=== PATIENT | male | born 1975 | race Caucasian/White ===

== ENCOUNTER 2019-03-22 09:35 | Emergency (ER) | payer MEDICAID ==
[~2019-03-22] VITALS: Ht 152.4 cm; Wt 75.3 kg
[~2019-03-22 09:35] MED LIST: ALBU8HFA PO; BUDE10.22 INH; KETO10TA2 PO; POLY17PO36 PO
[2019-03-22 09:43] VITALS: BP 127/84
[2019-03-22] MEDS ORDERED: METH4TAB81 PO (10:31)
[2019-03-22] MEDS ORDERED: AMOX-422 PO (10:31)
== END 2019-03-22 10:43 | disposition home or self-care (01) ==
LOC: ER 09:36
DX: S90.31XA Contusion of right foot, initial encounter (principal); J32.9 Chronic sinusitis, unspecified; J45.909 Unspecified asthma, uncomplicated; Z79.2 Long term (current) use of antibiotics; Z79.899 Other long term (current) drug therapy; Z87.442 Personal history of urinary calculi; Z90.49 Acquired absence of other specified parts of digestive tract; Z98.890 Other specified postprocedural states; X58.XXXA Exposure to other specified factors, initial encounter; Y93.71 Activity, boxing; Y92.89 Other specified places as the place of occurrence of the external cause; Y99.8 Other external cause status
CPT/HCPCS: 73630; 99283

== ENCOUNTER 2019-08-08 05:32 | Emergency (ER) | payer MEDICAID, OTHER ==
[~2019-08-08] VITALS: Ht 152.4 cm; Wt 76.3 kg
[~2019-08-08 05:32] MED LIST changes: +METH4TAB81 PO
[2019-08-08 06:37] LABS: CLARITY,URINE CLOUDY (Clear); COLOR,URINE YELLOW (Yellow); GLUCOSE, URINE NEGATIVE (Neg); KETONES,URINE NEGATIVE (Neg); LEUKOCYTE ESTERASE ,URINE SMALL (Neg); NITRITES, URINE NEGATIVE (Neg); OCCULT BLOOD,URINE LARGE (Neg); PROTEIN,URINE TRACE mg/dl (Neg); UROBILINOGEN,URINE 0.2 E.U/dL (0.2-1.0)
[2019-08-08 06:41] LABS: UA COLLECTION TYPE CLN CATCH MIDSTREAM
[2019-08-08 06:45] LABS: BACTERIA,URINE 3+ /HPF (Neg); MUCUS STRANDS NONE SEEN /LPF (Neg); RBC,URINE TNTC /HPF (0-2); SQUAMOUS EPITHELIAL CELL,UR NONE SEEN /LPF (FEW); TRANSITIONAL EPI CELLS,URINE FEW /HPF
[2019-08-08] MEDS ORDERED: BUPIVAcaine/PF 7.5mg/ml (0.75%) 10ml vial IJ ONE (06:55)
[2019-08-08] MEDS ORDERED: CEPH-572 PO (08:03)
[2019-08-08] MEDS ORDERED: cephalexin 500mg capsule PO ONE (08:05)
[2019-08-08] MEDS ORDERED: LIDOcaine 5% patch TP SCH (08:05)
[2019-08-08 08:12] VITALS: BP 156/105
== END 2019-08-08 08:15 | disposition home or self-care (01) ==
LOC: ER 05:34
DX: M54.10 Radiculopathy, site unspecified (principal); M79.604 Pain in right leg; N39.0 Urinary tract infection, site not specified; J45.909 Unspecified asthma, uncomplicated; G89.29 Other chronic pain; Z87.442 Personal history of urinary calculi; Z98.890 Other specified postprocedural states; Z79.899 Other long term (current) drug therapy
CPT/HCPCS: 64450; 81001; 87077; 87088; 87186; 99284; J3490

== ENCOUNTER 2019-08-12 22:42 | Emergency (ER) | payer MEDICAID, OTHER ==
[~2019-08-12] VITALS: Ht 152.4 cm; Wt 72.3 kg
[~2019-08-12 22:42] MED LIST changes: +CEPH-572 PO
[2019-08-12 22:46] VITALS: BP 150/95
[2019-08-12] MEDS ORDERED: CefTRIAXone 250MG inj IM ONE (23:10)
[2019-08-12] MEDS ORDERED: HYDROcodone/acetaminophen 5mg/325mg tablet PO ONE (23:10)
[2019-08-12] MEDS ORDERED: CefTRIAXone 250MG IM Kit w/LIDOcaine IM ONE (23:15)
[2019-08-12 23:18] LABS: CLARITY,URINE CLOUDY (Clear); COLOR,URINE ORANGE (Yellow); UA COLLECTION TYPE VOIDED
[2019-08-12 23:24] LABS: BACTERIA,URINE FEW /HPF (Neg); MUCUS STRANDS NONE SEEN /LPF (Neg); RBC,URINE 0-2 /HPF (0-2); SQUAMOUS EPITHELIAL CELL,UR FEW /LPF (FEW); TRANSITIONAL EPI CELLS,URINE FEW /HPF
[2019-08-12 23:41] LABS: CAL OXALATE CRYSTALS 2+ /HPF (NEGATIVE)
[2019-08-13] MEDS ORDERED: DOXY100C43 PO (00:14)
== END 2019-08-13 00:27 | disposition home or self-care (01) ==
LOC: ER 22:43
DX: N39.0 Urinary tract infection, site not specified (principal); J45.909 Unspecified asthma, uncomplicated; G89.29 Other chronic pain; Z79.899 Other long term (current) drug therapy; Z79.2 Long term (current) use of antibiotics; Z87.442 Personal history of urinary calculi; Z90.49 Acquired absence of other specified parts of digestive tract; Z98.890 Other specified postprocedural states
CPT/HCPCS: 36415; 81001; 87088; 87491; 87591; 96372; 99283; J0696

== ENCOUNTER 2019-08-19 18:46 | Emergency (ER) | payer MEDICAID ==
[~2019-08-19] VITALS: Ht 152.4 cm; Wt 71.0 kg
[~2019-08-19 18:46] MED LIST changes: -CEPH-572 PO; +DOXY100C43 PO
[2019-08-19 20:03] LABS: CLARITY,URINE SLIGHTLY CLOUDY (Clear); COLOR,URINE YELLOW (Yellow); GLUCOSE, URINE NEGATIVE (Neg); KETONES,URINE NEGATIVE (Neg); LEUKOCYTE ESTERASE ,URINE SMALL (Neg); NITRITES, URINE NEGATIVE (Neg); OCCULT BLOOD,URINE LARGE (Neg); PROTEIN,URINE NEGATIVE (Neg); UA COLLECTION TYPE CLN CATCH MIDSTREAM; UROBILINOGEN,URINE 0.2 E.U/dL (0.2-1.0)
[2019-08-19 20:14] LABS: BACTERIA,URINE 1+ /HPF (Neg); MUCUS STRANDS FEW /LPF (Neg); SQUAMOUS EPITHELIAL CELL,UR FEW /LPF (FEW)
[2019-08-19] MEDS ORDERED: normal saline 1000ML IV soln IVB ONE (20:55)
[2019-08-19 21:55] LABS: BASOPHILS % (AUTO) 0.6 % (0-1); EOSINOPHILS # (AUTO) 0.1 X10'3 (0-0.9); EOSINOPHILS % (AUTO) 1.6 % (0-6); HEMATOCRIT 39.2 % (42.0-52.0); HEMOGLOBIN 12.6 g/dl (14.0-17.9); LYMPHOCYTES # (AUTO) 1.5 X10'3 (1.1-4.8); LYMPHOCYTES % (AUTO) 25.2 % (21-51); MEAN CORPUSCULAR HEMOGLOBIN 24.8 PG (27.0-31.0); MEAN CORPUSCULAR HGB CONC 32.1 g/dL (33.0-36.5); MEAN CORPUSCULAR VOLUME 77.2 FL (78-98); MONOCYTES # (AUTO) 0.7 X10'3 (0-0.9); MONOCYTES % (AUTO) 11.3 % (2-12); NEUTROPHILS # (AUTO) 3.7 X10'3 (1.8-7.7); NEUTROPHILS % (AUTO) 61.3 % (42-75); PLATELET COUNT 317 X10'3 (140-440); RED BLOOD COUNT 5.08 X10'6 (4.70-6.10); RED CELL DISTRIBUTION WIDTH 18.5 % (11.5-14.5); WHITE BLOOD COUNT 6.1 X10'3 (4.5-11.0)
[2019-08-19 22:07] LABS: ALANINE AMINOTRANSFERASE 48 U/L (12-78); ALBUMIN 3.9 G/DL (3.4-5.0); ALKALINE PHOSPHATASE 76 IU/L (46-116); ANION GAP 8 (8-16); ASPARTATE AMINO TRANSFERASE 28 U/L (10-37); BILIRUBIN,TOTAL 0.4 MG/DL (0.1-1.0); BLOOD UREA NITROGEN 20 MG/DL (7-18); BUN/CREATININE RATIO 15.9 (5.4-32.0); CHLORIDE 103 MMOL/L (99-107); CREATININE 1.26 MG/DL (0.60-1.10); GLUCOSE 89 MG/DL (70-104); LIPASE 89 U/L (73-393); POTASSIUM 3.8 MMOL/L (3.5-5.1); SODIUM 139 MMOL/L (135-145); TOTAL CARBON DIOXIDE 27.8 MMOL/L (24-32); eGFR 62 ML/MIN
[2019-08-19] MEDS ORDERED: PHEN-716 PO (22:39)
[2019-08-19] MEDS ORDERED: CIPR-230 PO (22:39)
[2019-08-19 23:01] VITALS: BP 118/69
== END 2019-08-19 23:02 | disposition home or self-care (01) ==
LOC: ER 18:47
DX: N20.0 Calculus of kidney (principal); N39.0 Urinary tract infection, site not specified; I10 Essential (primary) hypertension; J45.909 Unspecified asthma, uncomplicated; G89.29 Other chronic pain; Z93.3 Colostomy status; Z98.890 Other specified postprocedural states; Z79.899 Other long term (current) drug therapy
CPT/HCPCS: 36415; 74176; 80053; 81001; 83690; 85025; 87088; 87491; 87591; 99284; J7030

== ENCOUNTER 2019-09-05 10:13 | Emergency (ER) | payer MEDICAID ==
[~2019-09-05] VITALS: Ht 152.4 cm; Wt 75.0 kg
[~2019-09-05 10:13] MED LIST changes: -DOXY100C43 PO; +PHEN-716 PO
[2019-09-05 10:54] LABS: CLARITY,URINE SLIGHTLY CLOUDY (Clear); COLOR,URINE YELLOW (Yellow); GLUCOSE, URINE NEGATIVE (Neg); KETONES,URINE NEGATIVE (Neg); LEUKOCYTE ESTERASE ,URINE SMALL (Neg); NITRITES, URINE NEGATIVE (Neg); OCCULT BLOOD,URINE LARGE (Neg); PROTEIN,URINE NEGATIVE (Neg); UROBILINOGEN,URINE 0.2 E.U/dL (0.2-1.0)
[2019-09-05 10:58] LABS: UA COLLECTION TYPE CLN CATCH MIDSTREAM
[2019-09-05 10:59] LABS: WBC,URINE 20-30 /HPF (0-4)
[2019-09-05 11:00] LABS: BACTERIA,URINE FEW /HPF (Neg); MUCUS STRANDS FEW /LPF (Neg); SQUAMOUS EPITHELIAL CELL,UR FEW /LPF (FEW)
[2019-09-05] MEDS ORDERED: CefTRIAXone 1000mg IM Kit (w/lidocaine diluent) IM ONE (11:30)
[2019-09-05] MEDS ORDERED: azithromycin 250mg tablet PO ONE (11:30)
[2019-09-05] MEDS ORDERED: fluconazole 150mg tablet PO ONE (11:30)
[2019-09-05] MEDS ORDERED: petrolatum, white 71gm jar TP STA (11:46)
[2019-09-05] MEDS ORDERED: L. R1CAP4 PO (11:56)
[2019-09-05] MEDS ORDERED: NYST30CR2 TP (11:56)
[2019-09-05 11:59] VITALS: BP 136/90
--- NOTE | 2019-09-09 09:02 | NUR ---
CALLED PT. LEFT A MESSAGE. PT CALLED RIGHT BACK AND WANTS HIS RX CALLED IN AT [facility]. CALLED RICARDA ROWLAND AT [facility].
--- NOTE | 2019-09-09 09:21 | NUR ---
CALLED IN RX FOR KEFLEX 500MG PO Q6 HOURS X 7 DAYS #[id number]
== END 2019-09-05 12:04 | disposition home or self-care (01) ==
LOC: ER 10:14
DX: N34.2 Other urethritis (principal); I10 Essential (primary) hypertension; J45.909 Unspecified asthma, uncomplicated; G89.29 Other chronic pain; Z87.442 Personal history of urinary calculi; Z90.49 Acquired absence of other specified parts of digestive tract; Z98.890 Other specified postprocedural states; Z79.899 Other long term (current) drug therapy
CPT/HCPCS: 81001; 87077; 87088; 87186; 96372; 99284; J0696